=== PATIENT | female | born 1965 | race Caucasian/White ===

== ENCOUNTER 2019-09-23 10:54 | Outpatient (CLI) | payer OTHER | END 2019-09-23 23:59 | disposition home or self-care (01) | LOC: CFH 10:54 | PROVIDERS: ATTEND Obstetrics & Gynecology | DX: Z12.31 Encounter for screening mammogram for malignant neoplasm of breast (principal) | CPT/HCPCS: 77063; 77067 ==

== ENCOUNTER → 2020-09-25 | Outpatient (CLI) | payer OTHER | END | disposition home or self-care (01) | LOC: CFH 07:44 | PROVIDERS: ATTEND Obstetrics & Gynecology | DX: Z12.31 Encounter for screening mammogram for malignant neoplasm of breast (principal) | CPT/HCPCS: 77063; 77067 ==

== ENCOUNTER 2021-03-02 15:07 | Emergency (ER) | payer OTHER ==
[~2021-03-02] VITALS: Ht 170.2 cm; Wt 68.2 kg
[2021-03-02 15:52] LABS: BASOPHILS % (AUTO) 1 % (0-1); EOSINOPHILS % (AUTO) 2 % (1-7); LYMPHOCYTES % (AUTO) 45 % (22-44); MEAN CORPUSCULAR HEMOGLOBIN 32.2 pg (27.0-34.8); MEAN CORPUSCULAR HGB CONC 34.3 g/dL (32.4-35.8); MEAN PLATELET VOLUME 9.5 fL (7.4-10.4); MONOCYTES % (AUTO) 9 % (2-9); NEUTROPHILS % (AUTO) 44 % (42-75); PLATELET COUNT 258 x10^3/uL (130-400); RED BLOOD COUNT 4.95 x10^6/uL (3.82-5.3); RED CELL DISTRIBUTION WIDTH 12.3 % (9.6-15.2)
[2021-03-02 16:05] LABS: ALBUMIN 4.2 g/dL (3.4-5.0); ANION GAP 7 mmol/L (5-15); CALCIUM 9.6 mg/dL (8.5-10.1); CHLORIDE 105 mmol/L (98-107); CREATININE 0.95 mg/dL (0.55-1.02)
--- NOTE | 2021-03-02 18:28 | NUR ---
AMBULATORY TO ROOM FROM LOBBY. NAD.
--- NOTE | 2021-03-02 18:28 | NUR ---
PATIENT WALKED BACK FROM [facility] WITH CHIEF C/O DIZZINESS X1 WEEK. SEEN AT [facility] AND PCP IN THE LAST WEEK. PER PATIENT SHE HAD ZEE AND SOME CHEST PAIN WELL. ROBINN, CONNECTED TO MONITOR, VSS, SIGNIFICANT OTHER AT BEDSIDE, CALL LIGHT WITHIN REACH.
[2021-03-02 18:34] VITALS: BP 132/73
--- NOTE | 2021-03-02 18:48 | NUR ---
REPORT TO MAR GORDON FOR TRANSFER OF PATIENT CARE.
--- NOTE | 2021-03-02 18:56 | NUR ---
PT SITTING IN GURNEY WITH OTHER PERSON IN ROOM. PT CONVERSING WITHOUT ISSUE. WHEN ASKED HOW SHE'S DOING, PT SAYS SHE'S STILL DIZZY. UPDATED AND AWAITING RECHECK WITH ALL RESULTS FINISHED.
--- NOTE | 2021-03-02 19:31 | NUR ---
Patient given discharge instructions and they have confirmed that they understand the instructions. Patient ambulatory with steady gait. NAD, all questions answered appropriately, denies additional needs at this time. No personal belongings left in room after discharge.
== END 2021-03-02 19:33 | disposition home or self-care (01) ==
LOC: ED 19:03
DX: R42 Dizziness and giddiness (principal); R06.02 Shortness of breath; R10.9 Unspecified abdominal pain; E03.9 Hypothyroidism, unspecified; F17.200 Nicotine dependence, unspecified, uncomplicated
CPT/HCPCS: 36415; 70360; 71045; 80048; 82040; 85025; 93005; 99285